=== PATIENT | female | born 1975 | race Caucasian/White ===

== ENCOUNTER 2017-08-01 11:28 | Outpatient (CLI) | payer BC ==
[2017-08-01] MEDS ORDERED: Iopamidol 370 76% 100 ML VIAL ONE (12:44)
--- NOTE | 2017-08-01 13:59 | CT ---
CT ABDOMEN AND PELVIS WITH IV AND ORAL CONTRAST: HISTORY: Right lower quadrant pain. Nausea. FINDINGS: The lung bases are clear. A tiny fat density lesion is noted within the pancreatic tail. The liver, spleen, kidneys, and adrenal glands have a normal CT appearance. Nonspecific lymph nodes are scatte red about the retroperitoneum and mesentery. The appendix is not inflated. The urinary bladder is unremarkable. IMPRESSION: No CT evidence of appendicitis. No significant abnormalities are demonstrated. POS: PAT
== END 2017-08-01 11:29 | disposition home or self-care (01) ==
LOC: CT 11:28
PROVIDERS: ATTEND Family Medicine
DX: R10.31 Right lower quadrant pain (principal)
CPT/HCPCS: 36415; 74177; 80053; 81001; 81025; 83690; 85025; 86140

== ENCOUNTER 2020-10-25 14:25 | Outpatient (CLI) | payer OTHER | END 2020-10-25 14:26 | disposition home or self-care (01) | LOC: BICMAMMO 14:25 | PROVIDERS: ATTEND Obstetrics & Gynecology | DX: N63.20 Unspecified lump in the left breast, unspecified quadrant (principal) | CPT/HCPCS: 77066; G0279 ==